=== PATIENT | male | born 1955 | race Two or more races ===

== ENCOUNTER 2023-04-03 14:44 | Emergency (ER) | payer BC, SELFPAY ==
[2023-04-03] VITALS (8 sets, daily range): BP systolic 130–143; BP diastolic 61–69; PULSE 63–67; RESP 17–26; TEMP 36.4; O2SAT 97–100; BMI 25.4
--- NOTE | 2023-04-03 14:44 | ECG_ITS ---
[facility] Test Date: 2023-04-03 Pat Name: OWEN BROWNING Department: Room: - Gender: Male Transportation Department Supervisor: : 1955 Requested By: [id number] Order Number: [id number] Reading MD: KOFI BRAMBILA Measurements Intervals Isabel Rate: 63 P: 69 DC: 190 QRS: 60 QRSD: 98 T: 65 QT: 416 QTc: 423 Interpretive Statements 1100 Sinus rhythm 2420 RSR (QR) in lead V1/V2, consistent with right ventricular conduction delay 6220 Possible left atrial enlargement 9130 borderline ECG No previous ECG available for comparison Electronically Signed On 04-04-2023 18:18:39 EDT by KOFI BRAMBILA
[2023-04-03 14:59] LABS: Basophils Percent Auto 0.6 % (0.2-2.0); Eosinophils Absolute Auto 0.1 10^3/uL (0.0-0.7); Eosinophils Percent Auto 1.4 % (0.9-7.0); Hematocrit 44.1 % (42.0-54.0); Hemoglobin 14.9 g/dL (14.0-18.0); Immature Granulocytes Abs Auto 0.01 10^3/uL (0.00-0.03); Immature Granulocytes Pct Auto 0.1 % (0.0-0.5); Lymphocytes Absolute Auto 0.8 10^3/uL (1.2-3.8); Lymphocytes Percent Auto 11.3 % (20.5-60.0); Mean Corpuscular HGB Conc 33.8 g/dL (29.9-35.2); Mean Corpuscular Hemoglobin 31.4 pg (25.9-34.0); Mean Corpuscular Volume 92.8 fL (80.0-94.0); Mean Platelet Volume 9.3 fL (9.5-13.5); Monocytes Absolute Auto 0.4 10^3/uL (0.3-0.8); Neutrophils Absolute Auto 5.9 10^3/uL (1.4-6.5); Neutrophils Percent Auto 81.6 % (43.0-75.0); Platelet Count 170 10^3/uL (150-450); Red Blood Count 4.75 10^6/uL (4.70-6.10); Red Cell Distribution Width 12.3 % (11.0-15.0); White Blood Count 7.2 10^3/uL (4.0-11.0)
[2023-04-03] MEDS: 0.9 % SODIUM CHLORIDE 1,000 ML 1000 ML IV (14:59)
--- NOTE | 2023-04-03 15:21 | CT_ITS ---
The [address] [address] Patient Name: OWEN BROWNING MRN: [id number] date: 1955 Sex: M Assigned Patient Location: ER Current Patient Location: Accession/Order Number: [id number] Exam Date: 04/03/2023 15:32 Report Date: 04/03/2023 15:58 At the request of: CHITO GREWAL Procedure: CT head/brain wo con EXAMINATION: CT head/brain wo con HISTORY: dizziness COMPARISON: None. TECHNIQUE: CT head without contrast. Dose reduction techniques were achieved by using: automated exposure control and/or adjustment of mA and /or kV according to patient size and/or use of iterative reconstruction technique. FINDINGS: The ventricles and sulci are within normal limits in size and configuration for age. There is no evidence for acute intracranial hemorrhage. There are no foci of abnormal parenchymal attenuation. There is no mass effect or midline shift. There are no abnormal extraaxial fluid collections. CT/CT head/brain wo con IMPRESSION: Negative for acute intracranial hemorrhage or acute intracranial process. Electronically authenticated by: ETTA REYES Date: 04/03/2023 15:58
--- NOTE | 2023-04-03 15:21 | ED.GENADUL1 ---
HPI - General Adult General Chief complaint: Nausea/Vomiting/Diarrhea Stated complaint: NAUSEA AND VOMITING Time Seen by Provider: 04/03/23 15:07 Source: patient Mode of arrival: ambulance Limitations: no limitations History of Present Illness HPI narrative: The patient is to the ER after he had an incident while he was in the restaurant after driving 2 hours from home and apparently the patient had an episode where he had abdominal cramping he feels that he need to go to the bathroom multiple time during which she was not successful in going to the bathroom The patient denies any abdominal pain at the moment but apparently at that moment he was trying to go to the bathroom and with straining he started having dizziness as well as feeling that he is going to pass out and he had his heart racing No difficulty breathing at any time no cough no fever no chills the patient also noted that yesterday he had 1 episode during which he had diarrhea No other complaints during the day At this moment the patient have only some generalized fatigue but he had no chest pain nausea vomiting or any other complaint at the moment also no abdominal cramping It was noted that after that incident he actually had 2 bowel movement [id number] one of them was solid the other was liquid Related Data Allergies Allergy/AdvReac Type Severity Reaction Status Date / Time No Known Drug Allergies Allergy Verified 04/03/23 14:40 Review of Systems ROS Status of ROS 10 or more systems reviewed and unremarkable except as noted in history and below Exam Narrative Exam Narrative: Nurses notes and vital signs reviewed and patient is not hypoxic. General: Well-appearing and in no apparent distress. Skin: Warm, dry, no pallor noted. No rash. Head: Normocephalic, atraumatic. Neck: Supple, non-tender. Eye: Pupils are equal, round and EOMI. No scleral icterus. Ears, Nose, Mouth, and Throat: TM are clear, no nasal mucosal hypertrophy. Oral mucosa is moist, no posterior oropharynx erythema, uvula is mid-line Cardiovascular: Regular Rate and Rhythm without murmur, gallop or rub. Respiratory: No accessory muscle use or respiratory distress. Lungs are clear to auscultation, no wheezing, rales or rhonchi Chest Wall: no tenderness Back: No midline thoracic or lumbar vertebral tenderness. No CVA tenderness Musculoskeletal: normal ROM, no calf or popliteal tenderness, no lower extremity edema/swelling GI: Abdomen is soft, non-distended. Normal bowel sounds. No masses appreciated. No tenderness to palpation. No rebound, guarding, or rigidity noted. Neurological: A&O x4. No cranial nerve dysfunction observed. No truncal ataxia. Moves all extremities. Sensation intact. Psychiatric: Cooperative and interactive. Normal mood and affect. Constitutional Vital Signs, click to edit/add: Last Vital Signs Temp 97.6 F 04/03/23 14:40 Pulse 67 04/03/23 15:50 Resp 18 04/03/23 15:50 BP 138/67 04/03/23 16:00 Pulse Ox 97 04/03/23 15:50 O2 Del Method Room Air 04/03/23 14:40 Course Vital Signs Vital signs: Vital Signs Temperature 97.6 F 04/03/23 14:40 Pulse Rate 63 04/03/23 14:40 Respiratory Rate 18 04/03/23 14:40 Pulse Oximetry 98 04/03/23 14:40 Oxygen Delivery Method Room Air 04/03/23 14:40 Temperature 97.6 F 04/03/23 14:40 Pulse Rate 67 04/03/23 15:50 Respiratory Rate 18 04/03/23 15:50 Blood Pressure 138/67 04/03/23 16:00 Pulse Oximetry 97 04/03/23 15:50 Oxygen Delivery Method Room Air 04/03/23 14:40 Medical Decision Making [facility] Narrative Medical decision making narrative: Ekg showing sinus rhythm with a heart rate of [address] elevation or depression CBC and chemistry showed no acute pathology and the patient CAT scan also was negative it was noted that the patient was straining when this happened and mostly it is secondary to vasovagal The patient mentioned history of a stroke and he also mentioned that difficulty speaking when he was dizzy but I think that is mostly secondary to the episode itself at the CAT scan also was negative and he does not even have elevated blood pressure at the moment and no acute neurological finding troponin repeated twice was negative, the patient was discharged home with supportive care of hydration and making sure that he follow-up with his primary care doctor within a week The patient is to follow up with primary care physician in next 2-3 days or to return to the emergency department should any of the signs or symptoms worsen or new symptoms develop. The patient agrees with the following Diagnosis and Treatment plan and the patient will be discharged home. Lab Data Labs: Lab Results 04/03/23 04/03/23 Range/Units 14:53 16:30 WBC 7.2 (4.0-11.0) 10^3/uL RBC 4.75 (4.70-6.10) 10^6/uL Hgb 14.9 (14.0-18.0) g/dL Hct 44.1 (42.0-54.0) % MCV 92.8 (80.0-94.0) fL MCH 31.4 (25.9-34.0) pg MCHC 33.8 (29.9-35.2) g/dL RDW 12.3 (11.0-15.0) % Plt Count 170 (150-450) 10^3/uL MPV 9.3 L (9.5-13.5) fL Neut % (Auto) 81.6 H (43.0-75.0) % Lymph % (Auto) 11.3 L (20.5-60.0) % Miner % (Auto) 5.0 (1.7-12.0) % Eos % (Auto) 1.4 (0.9-7.0) % Baso % (Auto) 0.6 (0.2-2.0) % Neut # (Auto) 5.9 (1.4-6.5) 10^3/uL Lymph # (Auto) 0.8 L (1.2-3.8) 10^3/uL Miner # (Auto) 0.4 (0.3-0.8) 10^3/uL Eos # (Auto) 0.1 (0.0-0.7) 10^3/uL Baso # (Auto) 0.0 (0.0-0.1) 10^3/uL Abs Immat Gran (auto) 0.01 (0.00-0.03) 10^3/uL Imm/Tot Granulo (auto) 0.1 (0.0-0.5) % Sodium 139 (136-145) mmol/L Potassium 4.5 (3.5-5.1) mmol/L Chloride 105 (98-107) mmol/L Carbon Dioxide 31.2 (21.0-32.0) mmol/L Anion Gap 7.3 BUN 17.0 (7.0-18.0) mg/dL Creatinine 1.06 (0.70-1.30) mg/dL Est GFR ( Amer) >60 (>=60) Est GFR (Non-Af Amer) >60 (>=60) BUN/Creatinine Ratio 16.0 Glucose 148 H (74-106) mg/dL Calcium 9.3 (8.5-10.1) mg/dL Total Bilirubin 0.9 (0.2-1.0) mg/dL AST 18 (15-37) U/L ALT 43 (16-63) U/L Alkaline Phosphatase 63 (46-116) U/L Troponin I High Sens 5.6 5.8 (4.0-76.1) pg/mL Total Protein 6.0 L (6.4-8.2) g/dL Albumin 3.8 (3.4-5.0) g/dL Globulin 2.2 g/dL Albumin/Globulin Ratio 1.7 Discharge Plan Discharge Chief Complaint: Nausea/Vomiting/Diarrhea Clinical Impression: Syncope, vasovagal Patient Disposition: Home, Self-Care Time of Disposition Decision: 16:22 Condition: Good Instructions: Syncope (ED) Stand Alone Forms: Portal Instructions Referrals: Physician,Non-Staff, MD [Primary Care Provider] - 1 week
[2023-04-03 15:41] LABS: Alanine Aminotransferase 43 U/L (16-63); Albumin Globulin Ratio 1.7; Albumin Level 3.8 g/dL (3.4-5.0); Alkaline Phosphatase 63 U/L (46-116); Anion Gap 7.3; Aspartate Amino Transferase 18 U/L (15-37); Bilirubin Total 0.9 mg/dL (0.2-1.0); Calcium 9.3 mg/dL (8.5-10.1); Carbon Dioxide 31.2 mmol/L (21.0-32.0); Chloride 105 mmol/L (98-107); Estimated GFR (African America >60 (>=60); Estimated GFR (Non-African Ame >60 (>=60); Globulin 2.2 g/dL; Glucose 148 mg/dL (74-106); Potassium 4.5 mmol/L (3.5-5.1); Sodium 139 mmol/L (136-145); Troponin I High Sensitivity 5.6 pg/mL (4.0-76.1)
[2023-04-03 17:05] LABS: Troponin I High Sensitivity 5.8 pg/mL (4.0-76.1)
== END 2023-04-03 17:27 | disposition home or self-care (01) ==
PROVIDERS: Emergency Provider Emergency Medicine
DX: R55 Syncope and collapse (principal); Z86.73 Personal history of transient ischemic attack (TIA), and cerebral infarction without residual deficits
CPT/HCPCS: 36415; 70450; 80053; 84484; 85025; 93005; 96360; 99285